=== PATIENT | female | born 1985 | race Caucasian/White ===

== ENCOUNTER → 2017-03-18 | Outpatient (CLI) | payer BC ==
[2017-03-19 08:48] LABS: Alpha Fetoprotein 57.7 ng/mL; B-HCG (M.O.M.) 0.36; Gestational Age (days) 6; Interpretation SeeBelow; Maternal Age at EDD (Yrs) 30; Smoker Not Provided; Unconjugated Estriol (M.O.M.) 1.55
== END | disposition home or self-care (01) ==
LOC: LABWHC1 16:36
PROVIDERS: ATTEND Obstetrics & Gynecology
DX: Z34.92 Encounter for supervision of normal pregnancy, unspecified, second trimester (principal); Z3A.00 Weeks of gestation of pregnancy not specified
CPT/HCPCS: 36415; 82105; 82677; 84702; 86336

== ENCOUNTER → 2017-05-08 | Outpatient (CLI) | payer BC ==
[2017-05-08 17:09] LABS: CH 31.8; CHCM 33.7; HCT 33.5 % (34.0-46.0); HDW 2.43; HGB 11.3 gm/dL (11.4-16.0); MCH 32.1 pg (25.0-35.0); MCHC 33.8 g/dL (31.0-37.0); Mean Platelet Volume 7.6; RBC 3.53 m/uL (3.80-5.40); WBC 12.3 k/uL (3.8-10.6)
[2017-05-08 17:34] LABS: Non-African American GFR(MDRD) >60 (>60 ml/min/1.73 sqM)
[2017-05-08 18:04] LABS: Hepatitis B Surface Ag Index 0.05
[2017-05-09 00:46] LABS: Treponemal Ab Non-Reactive (Non-Reactive)
[2017-05-09 07:22] LABS: Toxoplasma Antibody (IgG) <3.0 IU/mL (<7.2)
== END | disposition home or self-care (01) ==
LOC: LABWHC1 15:54
PROVIDERS: ATTEND Obstetrics & Gynecology
DX: O26.812 Pregnancy related exhaustion and fatigue, second trimester (principal); Z3A.00 Weeks of gestation of pregnancy not specified
CPT/HCPCS: 36415; 82565; 82950; 85027; 86762; 86777; 86778; 86780; 86850; 86900; 86901; 87340; 87390

== ENCOUNTER 2018-03-18 09:49 | Emergency (ER) | payer BC ==
--- NOTE | 2018-03-18 10:37 | ED ---
General Adult HPI - General Chief complaint: Chest Pain Stated complaint: fall, rib pain Time Seen by Provider: 03/18/18 10:16 Source: patient, RN notes reviewed Mode of arrival: ambulatory Limitations: no limitations - History of Present Illness Initial comments: This is a 32-year-old female presents emergency Department chief complaint of chest wall pain. Patient states that she was roughhousing with her kids states that her kids jumped on or why she landed on the ground she felt a pop in the right side of her chest but also has pain in her left lower ribs. She states his happened 3 days ago the pain is getting worse. Patient states pain is worse with deep inspiration and she also feels short of breath because she cannot take a deep respiration without pain. Patient states that she's no palpitations nausea, vomiting, diarrhea, constipation. Patient has no fever or chills no URI symptoms. - Related Data Previous Rx's Medication Instructions Recorded Ibuprofen [Motrin] 600 mg PO Q8HR PRN #30 tab 03/18/18 Allergies Allergy/AdvReac Type Severity Reaction Status Date / Time amoxicillin Allergy numbness Verified 03/18/18 10:20 of hands carrot Allergy Unknown Verified 03/18/18 10:20 Review of Systems ROS Statement: Those systems with pertinent positive or pertinent negative responses have been documented in the HPI. ROS Other: All systems not noted in ROS Statement are negative. Past Medical History Past Medical History: No Reported History History of Any Multi-Drug Resistant Organisms: None Reported Past Surgical History: Section Additional Past Surgical History / Comment(s): d&c, ectopic with removal of right fallopian tube Past Anesthesia/Blood Transfusion Reactions: Postoperative Nausea & Vomiting ( PONV) Past Psychological History: No Psychological Hx Reported Smoking Status: Current some day smoker Past Alcohol Use History: None Reported, Rare Past Drug Use History: None Reported - Past Family History Mother Family Medical History: No Reported History General Exam Limitations: no limitations General appearance: alert, in no apparent distress Neck exam: Present: normal inspection, full ROM. Absent: tenderness, meningismus, lymphadenopathy Respiratory exam: Present: normal lung sounds bilaterally, chest wall tenderness (Moderate right anterior chest wall tenderness, left lower rib tenderness no ecchymosis no deformity). Absent: respiratory distress, wheezes, rales, rhonchi, stridor Cardiovascular Exam: Present: regular rate, normal rhythm, normal heart sounds. Absent: systolic murmur, diastolic murmur, rubs, gallop, clicks Neurological exam: Present: alert, oriented X3, CN II-XII intact Skin exam: Present: warm, dry, intact, normal color. Absent: rash Course Vital Signs 03/18/18 10:09 Temperature 98.6 F Pulse Rate 90 Respiratory 18 Rate Blood Pressure 112/79 O2 Sat by Pulse 100 Oximetry Medical Decision Making - Medical Decision Making 32-year-old female presented emergency department for rib injury. X-rays were obtained and read by radiologist no acute fracture. Patient will be discharged at this time with close follow-up we did discuss presents from 3 at home. Return parameters were discussed. Disposition Clinical Impression: Chest wall injury, Rib contusion Disposition: HOME SELF-CARE Condition: Stable Instructions: Rib Contusion (ED) Additional Instructions: Please return to the Emergency Department if symptoms worsen or any other concerns. Prescriptions: Ibuprofen [Motrin] 600 mg PO Q8HR PRN #30 tab PRN Reason: Pain Is patient prescribed a controlled substance at d/c from ED?: No Referrals: None,Stated [Primary Care Provider] - 1-2 days Time of Disposition: 11:14
--- NOTE | 2018-03-18 10:52 | XR ---
Left RIBS with chest x-ray HISTORY: Trauma and pain Frontal view of the chest and 4 views of the left ribs submitted on a total 5 images There is no pneumothorax or pleural effusion. Heart size is normal. No evident displaced rib fracture . Chest x-ray is rotated, relative lucency of the left hemithorax may be technical, question spinal c urvature. IMPRESSION: Rotated exam as described. Bone scan could be performed for increased sensitivity if occu lt fracture is suspected clinically.
[2018-03-18] MEDS ORDERED: ACET/COD 300 MG/30 MG STARTER PACK 6 TAB BTL PO STA (11:13)
[2018-03-18 11:42] VITALS: BP 107/73; PULSE 77; RESP 16; TEMP 97.6
== END 2018-03-18 11:53 | disposition home or self-care (01) ==
LOC: EC 09:49
DX: S20.212A Contusion of left front wall of thorax, initial encounter (principal); F17.200 Nicotine dependence, unspecified, uncomplicated; Z88.0 Allergy status to penicillin; Z91.018 Allergy to other foods; W19.XXXA Unspecified fall, initial encounter; Y93.83 Activity, rough housing and horseplay
CPT/HCPCS: 99283

== ENCOUNTER → 2022-05-30 | Outpatient (CLI) | payer BC ==
--- NOTE | 2022-05-30 16:02 | US ---
EXAMINATION TYPE: US transvaginal DATE OF EXAM: 05/30/2022 COMPARISON: NONE CLINICAL HISTORY: N94.6 DYSMENORRHEA, UNSPECIFIED. cycles lasting 8 months, , TECHNIQUE: TV. Transvaginal sonographic images Date of LMP: 8 months ago EXAM MEASUREMENTS: Uterus: 10.0 x 5.2 x 4.4 cm Endometrial Stripe: 0.4 cm Right Ovary: 3.5 x 2.1 x 2.9 cm Left Ovary: 3.0 x 2.2 x 2.2 cm 1. Uterus: Anteverted an anterior fundal uterine fibroid measuring 2.2 cm is not excluded deformin g the endometrial canal. 2. Endometrium: wnl 3. Right Ovary: wnl 4. Left Ovary: wnl 5. Bilateral Adnexa: wnl 6. Posterior cul-de-sac: wnl Some very minimal fluid may be within the cul-de-sac which can be physiologic. IMPRESSION: 1. No suspicious acute ultrasound abnormality. 2. Suspected anterior fundal uterine fibroid.
== END | disposition home or self-care (01) ==
LOC: RADUSWWP 14:48
PROVIDERS: ATTEND Family Medicine
DX: N94.6 Dysmenorrhea, unspecified (principal)
CPT/HCPCS: 76830